=== PATIENT | female | born 1995 | race African-American/Black ===

== ENCOUNTER 2024-04-26 21:18 | Inpatient (IN) ==
[2024-04-26] MEDS ORDERED: LIDOCAINE 1% LOCAL 20 ML VIAL INFIL PRN (21:30)
--- NOTE | 2024-04-26 21:33 | Labor Progress Brief Note ---
Date of Service April 26, 2024 Subjective Patient c/o ctx since 0900 this AM, did not call office. When pain was intolerable she called o/c MD and was invited to L&D. She has now arrived, no ROM, no VB, good FM, but very painful with ctx Q2-3 min. Primip with preg at term, EDC today, c/b GBS+ and abnl pap. FHT Cat 1 [place] just started tracing but clinically Q2-3 Cvx /-1/bulging Plan: Admit, Epidural lynnette, anticipate . Coding Level of Care Code None
[2024-04-26 22:12] LABS: Hematocrit (blood only) 40.3 % (37.0-47.0); Mean Corpuscular Hemoglobin 28.9 pg (25.0-34.0); Mean Corpuscular Hgb Conc 32.3 g/dL (32.0-36.0); Mean Corpuscular Volume 89.6 fL (80.0-100.0); Mean Platelet Volume 11.9 fL (9.4-12.4); Platelet Count 218 K/uL (130-400); RDW Coefficient of Variation 13.7 % (11.5-14.5); RDW Standard Deviation 44.8 fL (36.4-46.3); White Blood Count 8.61 K/ul (4.8-10.8)
[2024-04-26] MEDS: PENICILLIN GK 6 MU in DEXTROSE 5% 250 ML IV STA (22:22)
[2024-04-26] MEDS: LACTATED RINGER'S 1,000 ML IV PRN (22:22)
[2024-04-26] MEDS: fentANYL 2 MCG/ML BUPIVacaine 0.125%-NSS 100ML BAG ONE (23:35)
[2024-04-26] MEDS: LIDOCAINE 2%/EPINEPHRINE 1:200,000 20 ML PF ONE (23:37)
[2024-04-26] MEDS: BUPIVACAINE 0.25% PF 30 ML VIAL ONE (23:38)
--- NOTE | 2024-04-26 23:44 | Anesthesiology Consultation ---
Date of Service April 26, 2024 Assessment & Plan Chart Review Chart Review: Acceptable Risk for Labor Epidural Consults Requested none History Height/Weight Height: 5 ft 6 in Weight: 73.936 kg Allergies Allergy/AdvReac Type Severity Reaction Status Date / Time No Known Allergies Allergy Verified 04/26/24 22:07 Medications Home Medications Medication Instructions Recorded Confirmed Last Taken multivit with min-folic acid 1 tab PO DAILY 10/11/23 04/26/24 04/25/24 21:00 [Women's Multivitamin Gummies] ferrous sulfate 325 mg (65 mg 325 mg PO DAILY 12/09/23 04/26/24 04/25/24 21:00 iron) tablet Active Medications Generic Name Dose Route Start Last Admin Trade Name Freq PRN Reason Stop Dose Admin Lactated Ringer's 1,000 mls @ 125 mls/hr 04/26/24 21:30 04/26/24 22:55 Lr IV 04/28/24 21:29 999 mls/hr .Q8H PRN Infusion L&D Protocol Protocol Past Medical History Medical History History of chicken pox Past Family History Family History (Updated 10/11/23 @ 13:11 by Yadira Thomas) Grandfather (Paternal) Diabetes Denies family history of Ovarian cancer Breast cancer Colorectal cancer Past Surgical History Surgical History No history of previous surgery Social History Smoking Status: Never smoker Do You Dip or Chew Tobacco: No Hx Alcohol Use: No Hx Substance Use: No substance use type: does not use Physical Exam Vital Signs Last Vital Signs Temp 37.0 C 04/26/24 21:40 Pulse 72 04/26/24 23:42 Resp 20 04/26/24 21:40 BP 127/60 04/26/24 23:39 Pulse Ox 100 04/26/24 23:42 Testing Laboratory Results 04/26/24 21:50
[2024-04-27] MEDS: fentaNYL citrate PF 100 MCG/2 ML VIAL ONE
[2024-04-27] MEDS: PENICILLIN GK 3 MU in DEXTROSE 5% 100 ML IV PRN (02:04)
[2024-04-27] MEDS: OXYTOCIN 30 UNITS/NSS 30 UNITS/500 ML BAG IV PRN (03:00)
--- NOTE | 2024-04-27 03:04 | Delivery Summary ---
Vaginal Delivery Summary Date of Service April 27, 2024 Vaginal Delivery Summary DIAGNOSES: 1. Rosenberg intrauterine at 40w1d gestation. 2. Spontaneous onset of labor. 3. Group B Streptococcus Pos. PROCEDURE: Spontaneous vaginal delivery and repair of R periurethral and 1st degree posterior vaginal laceration. SURGEON: Evelin Morel MD. PROSTHETIST: None. ESTIMATED BLOOD LOSS: 150 mL. COMPLICATIONS: None. PLACENTA: Spontaneous and intact with a 3-vessel cord. DISPOSITION: Stable to labor and delivery. DESCRIPTION: The patient pushed well and brought the head to in DOA position. Prolonged was noted. Johnny position was employed, and although the shoulders did deliver with the next contraction, they were noted to be a tight fit. There was one loop of nuchal cord. The right shoulder was anterior. The shoulders and body delivered without any difficulty, and the infant was placed on the maternal abdomen. It was vigorous and moving all extremities, and making respiratory efforts. The cord was doubly clamped by the MD and then cut by the FOB. The placenta delivered spontaneously and was noted to be intact and with a 3VC. The cervix, vagina and perineum were examined and were found to have a R periurethral lac and a 1st degree posterior vaginal lac; these were repaired with 3-0 vicryl suture in running locked manner. The fundus was firm and lochia minimal immediately after delivery. [facility] Vaginal Delivery Charge Vaginal Delivery Codes: 58798 global code for the antepartum, delivery, and post-
[2024-04-27] MEDS ORDERED: OXYTOCIN 30 UNITS/NSS 30 UNITS/500 ML BAG IV PRN (03:20)
[2024-04-27] MEDS ORDERED: oxyCODONE/ACETAMINOPHEN 5mg/325mg TAB PO PRN (03:20)
[2024-04-27] MEDS ORDERED: HYDROCORTISONE ACETATE 25 MG SUPP PR PRN (03:20)
[2024-04-27] MEDS: ePHEDrine sulfate 50 MG/ML AMP ONE (03:34)
[2024-04-27] MEDS: SODIUM CHLORIDE 0.9% PF INJ 10 ML VIAL ONE (03:34)
[2024-04-27] MEDS: DIPHTHER/TETAN/PERTUS Vaccine (Tdap, Adol/Adult) 0.5mL IM ONE (06:41)
[2024-04-27] MEDS: IBUPROFEN 600 MG TAB PO PRN (08:02)
[2024-04-27] MEDS: PRENATAL VITAMIN 1 TAB PO SCH (08:02)
[2024-04-27] MEDS: DOCUSATE SODIUM 100 MG CAP PO SCH (08:03)
[2024-04-27] MEDS: LIDOCAINE 2% JELLY 5 ML TUBE EXT ONE (10:54)
--- NOTE | 2024-04-27 11:00 | Anesthesia Procedure Note ---
Date of Service April 27, 2024 Anesthesia Post Epidural Note Vital Signs Vital Signs: Temp Pulse Resp BP Pulse Ox O2 Del Method 36.8 C 71 18 110/62 99 Room Air 04/27/24 07:51 04/27/24 07:51 04/27/24 07:51 04/27/24 07:51 04/27/24 07:51 04/27/24 07:51 Notes Mental Status: alert / awake / arousable and participated in evaluation Nausea / Vomiting: adequately controlled Pain: adequately controlled Airway Patency, RR, SpO2: stable & adequate BP & HR: stable & adequate Hydration State: stable & adequate Neuraxial Anesthesia: was administered and sensory block resolved Anesthetic Complications: no major complications apparent and Pt Satisfied with anesthetic care Epidural: Removed without complications and With tip intact
[2024-04-27] MEDS: ACETAMINOPHEN 325 MG TAB PO PRN (17:30)
[2024-04-27] MEDS: BENZOCAINE 20% SPRY 85 APPLN/85 GM CAN EXT PRN (17:30)
--- NOTE | 2024-04-28 05:56 | Obstetrical Progress Note ---
Date of Service <Tj Kaba DO - Last Filed: 04/28/24 05:56> April 28, 2024 Assessment & Plan <Tj Kaba DO - Last Filed: 04/28/24 05:56> (1) Encounter for assessment: Plan 29 y/o PPD#1: Eating well, voiding well, ambulating well Vitals reviewed, WNL Pain well controlled with Tylenol and Motrin Routine post care - OOB, ambulation, diet progression as tolerated Will have 6 week follow up with Dr. Morel <Bettie Slade MD, FACOG - Last Filed: 04/28/24 07:32> (1) Encounter for assessment: Subjective <Tj Sesar - Last Filed: 04/28/24 05:56> Ambulation: ambulating normally Voiding: no voiding problems Passing Gas:: Yes Diet Tolerance:: regular diet Lochia:: Moderate Feeding Type:: breast feeding pain well controlled with Tylenol and Motrin Review of Systems -Denies fever or chills -Denies dyspnea, chest pain, or palpitations -Denies dysuria -Denies headache or changes in vision Physical Exam <Tj Kaba - Last Filed: 04/28/24 05:56> General: Alert and oriented. No acute distress Cardiac: Regular rate and rhythm, no murmurs appreciated Respiratory: Lungs clear to auscultation bilaterally, No increased work of breathing Abdominal: Soft, non-tender, non-distended. Bowel sounds present. Uterus: Uterine fundus firm, palpable below umbilicus Extremities: No lower extremity edema, calves non-tender bilaterally Results & Data <Tj Kaba - Last Filed: 04/28/24 05:56> Vital Signs (Past 12 Hours) Vital Signs Temp Pulse Resp BP 04/28/24 00:08 36.9 C 80 18 108/61 04/27/24 19:45 36.6 C 73 18 102/54 L Supervising Physician <Bettie Slade MD, FACOG - Last Filed: 04/28/24 07:32> Co-Signing Physician Notes Resident Physician Supervision Note: I interviewed and examined the patient. Discussed with Dr. Kaba and agree with findings and plan as documented in the note. Any exceptions or clarifications are listed here: [None] Documented By: Bettie Slade MD, FACOG Resident Activity Tracking <Tj Kaba DO - Last Filed: 04/28/24 05:56> Resident Involvement: Resident Care Provided Care Provided: OB Delivery
[2024-04-28 06:42] LABS: Hematocrit (blood only) 31.4 % (37.0-47.0); Hemoglobin 10.1 g/dl (12.0-16.0); Mean Corpuscular Hemoglobin 28.7 pg (25.0-34.0); Mean Corpuscular Hgb Conc 32.2 g/dL (32.0-36.0); Mean Corpuscular Volume 89.2 fL (80.0-100.0); Mean Platelet Volume 11.7 fL (9.4-12.4); Platelet Count 186 K/uL (130-400); RDW Coefficient of Variation 13.9 % (11.5-14.5); RDW Standard Deviation 45.4 fL (36.4-46.3); Red Blood Count 3.52 M/uL (4.20-5.40); White Blood Count 10.99 K/ul (4.8-10.8)
[2024-04-28] MEDS: bisacodyL 5 MG TABEC PO SCH (21:17)
[2024-04-29] MEDS ORDERED: bisacodyL 10 MG SUPP PR PRN (03:20)
[2024-04-29 06:34] LABS: Hematocrit (blood only) 32.8 % (37.0-47.0); Hemoglobin 10.8 g/dl (12.0-16.0)
--- NOTE | 2024-04-29 06:41 | Obstetrical Progress Note ---
Date of Service <Tj Kaba DO - Last Filed: 04/29/24 06:42> April 29, 2024 Assessment & Plan <Tj Kaba - Last Filed: 04/29/24 06:42> (1) Encounter for assessment: Plan 29 y/o PPD#2: Eating well, voiding well, ambulating well Vitals reviewed, WNL Pain well controlled with Motrin Routine post care - OOB, ambulation, diet progression as tolerated Will have 6 week follow up with Dr. Morel <Mary Banks, DO - Last Filed: 04/29/24 07:53> (1) Encounter for assessment: Subjective <Tjmatt Kaba DO - Last Filed: 04/29/24 06:42> Ambulation: ambulating normally Voiding: no voiding problems Passing Gas:: Yes Diet Tolerance:: regular diet Lochia:: Moderate Feeding Type:: breast feeding pain well controlled with Motrin Review of Systems -Denies fever or chills -Denies dyspnea, chest pain, or palpitations -Denies dysuria -Denies headache or changes in vision Physical Exam <Tj Sheehanani DO - Last Filed: 04/29/24 06:42> General: Alert and oriented. No acute distress Cardiac: Regular rate and rhythm, no murmurs appreciated Respiratory: Lungs clear to auscultation bilaterally, No increased work of breathing Abdominal: Soft, non-tender, non-distended. Bowel sounds present. Uterus: Uterine fundus firm, palpable below umbilicus Extremities: No lower extremity edema, calves non-tender bilaterally Results & Data <Tjmatt Kaba DO - Last Filed: 04/29/24 06:42> Vital Signs (Past 12 Hours) Vital Signs Temp Pulse Resp BP Pulse Ox O2 Del Method 04/29/24 00:10 36.7 C 76 16 109/62 99 Room Air 04/28/24 19:50 36.8 C 93 H 18 104/53 L 99 Room Air Supervising Physician <Mary Banks, DO - Last Filed: 04/29/24 07:53> Co-Signing Physician Notes Resident Physician Supervision Note: I interviewed and examined the patient. Discussed with Dr. Kaba and agree with findings and plan as documented in the note. Any exceptions or clarifications are listed here: PPD#2 doing well, Dc home, instructions reviewed. Followup 6w PP. Documented By: Mary Banks DO Resident Activity Tracking <Tj Kaba DO - Last Filed: 04/29/24 06:42> Resident Involvement: Resident Care Provided Care Provided: OB Delivery
== END 2024-04-29 11:30 | disposition home or self-care (01) | DRG 807 ==
LOC: OPB 21:18 → 4S1 21:21 → 4E1 04-27 05:57